=== PATIENT | female | born 1945 | race Caucasian/White ===

== ENCOUNTER → 2017-06-04 | Day surgery (SDC) | payer MEDICARE ==
[~2017-06-04] MED LIST: ADVA250A INH; CLINDAMYCIN PHOS 600 MG/4 ML VIAL ONE; DULO20 PO; DYAZ37.57 PO; GLUCTAB PO; KETOROLAC TROMETHAMINE 30 MG/ML (IVP) VIAL IV PUSH ONE; LACTATED RINGER'S 1000 ML INJ 1,000 ML ONE; LOSA25TA31 PO; MEPERIDINE HCL 25 MG/ML VIAL ONE; MIDAZOLAM HCL 2 MG/2 ML VIAL ONE; ONDANSETRON HCL 4 MG/2 ML VIAL IV PUSH ONE; PRIL20CA PO; PROPOFOL 200 MG/20 ML AMP IV ONE; SYNT112T PO; TRIAMCINOLONE ACETONIDE 40 MG/ML VIAL ONE; VENTAER INH; VITATAB11 CHEW
--- NOTE | 2017-06-04 13:28 | TN ---
cc: BASIA HADDAD M.D. DATE OF SURGERY June 04, 2017 PREOPERATIVE DIAGNOSIS Right knee internal derangement. POSTOPERATIVE DIAGNOSES 1. Right knee complex tear medial meniscus and lateral meniscus. 2. Right knee lateral compartment severe chondromalacia. PROCEDURE Right knee arthroscopic surgery - subtotal medial and lateral meniscectomy. SURGEON Parrish Haddad MD LICENSED EMBALMER SUPERVISOR SYLVIA Bailey None. ESTIMATED BLOOD LOSS None. COMPLICATIONS None. ANESTHESIA General. DRAINS None. TOURNIQUET TIME 13 minutes at 250 mmHg. CONDITION Stable. PLAN OF ACTIVITY As per orders. PROCEDURE The patient was brought into the operating room, had satisfactory anesthesia by the Department of Anesthesia. The right lower extremity was prepped and draped in the usual sterile manner. The extremity was exsanguinated by Mario wrap, tourniquet inflated to 250 mmHg. Routine anterior lateral and anterior medial port holes were made, introduction of the arthroscopic instrument performed. The knee was inflated with sterile Ringer's lactate solution. The patellofemoral compartment revealed the patient to have a moderate degree of synovitis. The patient was found to have a mild degree of chondromalacia of the patella. The medial compartment showed the patient to have mild to moderate degree of chondromalacia about the medial femoral condyle and medial tibial plateau. The patient was found to have a complex tear involving the posterior medial meniscus. Subtotal medial meniscectomy was used using different types of meniscal rongeurs with jt. The anterior cruciate ligament was found to be inact. The lateral compartment showed the patient to have a complex tear involving the lateral meniscus. A subtotal lateral meniscectomy was performed with multiple different types of meniscal rongeurs with the shaver. Chondroplasty and shaving of the articular surface also in the lateral compartment. The patient was found to have exposed bone involving the lateral tibial plateau and the lateral femoral condyle. Following the chondroplasty the knee was irrigated with copious amounts of sterile saline antibiotic solution. The wound itself was dry. The arthroscopic instruments were removed. The knee was injected with 1 cc of Kenalog 40. The incisions were closed with 3-0 nylon. Sterile dressings were applied. The tourniquet was deflated. The patient tolerated the procedure well and arrived in the recovery room in stable and satisfactory condition. MD FACUNDO Vance/SSB /1:10 PM /1:14 PM
== END | disposition home or self-care (01) ==
LOC: ESDC 10:49
PROVIDERS: ATTEND Orthopaedic Surgery Orthopaedic Surgery of the Spine
DX: S83.231A Complex tear of medial meniscus, current injury, right knee, initial encounter (principal); S83.271A Complex tear of lateral meniscus, current injury, right knee, initial encounter; M94.261 Chondromalacia, right knee
CPT/HCPCS: 01400; 29880; J1885; J2175; J2250; J2405; J3010; J3301; J7120

== ENCOUNTER → 2017-11-23 | Outpatient (CLI) | payer MEDICARE ==
[~2017-11-23] MED LIST changes: +ALBUAER3 INH; -CLINDAMYCIN PHOS 600 MG/4 ML VIAL ONE; +COZA25TA PO; +CPMMACHINE; +DYAZ37.5 PO; +FLUT1BLS INH; -KETOROLAC TROMETHAMINE 30 MG/ML (IVP) VIAL IV PUSH ONE; -LACTATED RINGER'S 1000 ML INJ 1,000 ML ONE; +LEVO112T2 PO; -MEPERIDINE HCL 25 MG/ML VIAL ONE; +METF500T PO; -MIDAZOLAM HCL 2 MG/2 ML VIAL ONE; -ONDANSETRON HCL 4 MG/2 ML VIAL IV PUSH ONE; +PRIL20TA2 PO; -PROPOFOL 200 MG/20 ML AMP IV ONE; -TRIAMCINOLONE ACETONIDE 40 MG/ML VIAL ONE; +TYLE325T PO; +WALKER WHEELS/F1 MIS
== END ==
LOC: CPRE 11:29
PROVIDERS: ATTEND Orthopaedic Surgery Orthopaedic Surgery of the Spine
DX: M17.10 Unilateral primary osteoarthritis, unspecified knee (principal)

== ENCOUNTER 2017-11-26 10:45 | Inpatient (IN) | payer MEDICARE ==
[~2017-11-26] VITALS: Ht 167.6 cm; Wt 103.0 kg
[~2017-11-26 10:45] MED LIST changes: -ADVA250A INH; -CPMMACHINE; -DYAZ37.57 PO; -GLUCTAB PO; -LOSA25TA31 PO; -PRIL20CA PO; -SYNT112T PO; -VENTAER INH; -VITATAB11 CHEW; -WALKER WHEELS/F1 MIS
[2017-11-26] MEDS ORDERED: GLYCOPYRROLATE 1 MG/5 ML SYRINGE IV PUSH ONE (12:00)
[2017-11-26] MEDS ORDERED: ePHEDrine/NS 25 MG/5 ML SYRINGE IV ONE (12:00)
[2017-11-26] MEDS ORDERED: ceFAZolin 2 GM PREMIX 50 ML IV SCH (12:00)
[2017-11-26] MEDS ORDERED: PHENYLEPHRINE HCL 10 MG/ML VIAL IV ONE (12:00)
[2017-11-26] MEDS ORDERED: LIDOCAINE HCL 1% PF 5 ML SYRINGE OTHER ONE (12:00)
[2017-11-26] MEDS ORDERED: PHENYLEPH/NS 1000 MCG/10 ML SYR IV ONE (12:00)
[2017-11-26] MEDS ORDERED: VANCOMYCIN 1 GM/200 ML INJ 200 ML IV ONE (12:31)
[2017-11-26] MEDS ORDERED: SODIUM CHLORID 0.9% 500 ML IV PRN (12:45)
[2017-11-26] MEDS ORDERED: METOPROLOL TARTRATE 25 MG TAB PO PRN (12:45)
[2017-11-26] MEDS ORDERED: LACTATED RINGER'S 1000 ML IV PRN (12:45)
[2017-11-26] MEDS ORDERED: POVIDONE IODINE 5% (ANTISEPSIS KIT) 4 APPLICATIONS EACH NARE PRN (12:45)
[2017-11-26] MEDS ORDERED: CHLORHEXIDINE GLUCONATE 2 % 1 PACK (2 CLOTHS) TOPICAL PRN (12:45)
[2017-11-26] MEDS ORDERED: MIDAZOLAM HCL 2 MG/2 ML VIAL ONE (12:51)
[2017-11-26] MEDS ORDERED: FAMOTIDINE 20 MG/2 ML VIAL ONE (12:51)
[2017-11-26] MEDS ORDERED: ROPIVACAINE PERI-ARTICULAR INJECTION. P-ARTICULR SCH ×5 (13:00)
[2017-11-26] MEDS ORDERED: MIDAZOLAM HCL 2 MG/2 ML VIAL IV PUSH ONE (13:00)
[2017-11-26] MEDS ORDERED: CHLORHEXIDINE GLUCONATE 4% SOLN 120 ML BTL TOPICAL SCH (13:00)
[2017-11-26] MEDS ORDERED: FAMOTIDINE 20 MG/2 ML VIAL IV PUSH ONE (13:00)
[2017-11-26] MEDS ORDERED: VANCOMYCIN 1 GM/200 ML PREMIX IV SCH (13:00)
[2017-11-26] MEDS ORDERED: BUPIVACAINE PF 0.75% DEX-WATER INJ 2 ML AMP ONE (13:30)
[2017-11-26] MEDS ORDERED: ceFAZolin 2 GM PREMIX 50 ML ONE (13:37)
[2017-11-26] MEDS ORDERED: GENTAMICIN SULFATE 80 MG/2 ML VIAL ONE (13:37)
[2017-11-26] MEDS ORDERED: PROPOFOL 500 MG/50 ML INJ 100 ML ONE (14:04)
[2017-11-26] MEDS ORDERED: KETAMINE HCL 500 MG/5 ML VIAL ONE (14:04)
[2017-11-26] MEDS ORDERED: Post-op Orders (for Pharmacy) XX ONE (17:15)
[2017-11-26] MEDS ORDERED: MORPHINE SULFATE 8 MG/ML INJ IV PUSH PRN (17:15)
[2017-11-26] MEDS ORDERED: ALUMINUM/MAGNESIUM/SIMETH 30 ML CUP PO PRN (17:15)
[2017-11-26] MEDS ORDERED: ZOLPIDEM TARTRATE 5 MG TAB PO PRN (17:15)
[2017-11-26] MEDS ORDERED: ALBUTEROL SULFATE 90 MCG/ACT HFA 8 GM INHALER INH PRN (17:15)
[2017-11-26] MEDS ORDERED: ONDANSETRON HCL 4 MG/2 ML VIAL IVP PRN (17:15)
[2017-11-26] MEDS ORDERED: CPMMACHINE (17:20)
[2017-11-26] MEDS ORDERED: WALKER WHEELS/F1 MIS (17:20)
--- NOTE | 2017-11-26 17:42 | RADRPT ---
EXAM DATE/TIME: 11/26/2017 17:25 [facility] COMPARISON: No previous studies available for comparison. INDICATIONS : Post hardware placement right knee MEDICAL HISTORY : Arthritis. SURGICAL HISTORY : None. ENCOUNTER: Initial ACUITY: 1 day PAIN SCORE: 0/10 LOCATION: Right Knee FINDINGS: AP and lateral views of the knee following arthroplasty reveals a prosthesis in anatomic alignment. F racture is not appreciated. Surgical drain is evident, CONCLUSION: Status post total knee arthroplasty. Nathan Locke MD FACR on November 26, 2017 at 17:40 Board Certified Radiologist. This report was verified electronically.
[2017-11-26] MEDS: LACTATED RINGER'S 1000 ML INJ 1,000 ML IV SCH (18:30)
[2017-11-26] MEDS ORDERED: *morphine SULFATE 4 MG/ML PERIprocedure ONLY ONE (18:43)
--- NOTE | 2017-11-26 19:14 | MP ---
cc: Daniel Lancaster MD, Alfonza Jr Staley, Tyler DATE OF OPERATION: PREOPERATIVE DIAGNOSIS: Right knee severe osteoarthritis, genu valgus deformity. POSTOPERATIVE DIAGNOSIS: Right knee severe osteoarthritis, genu valgus deformity. PROCEDURE PERFORMED: Right total knee arthroplasty, cemented [employer]. SURGEON: Daniel Lancaster MD COMMUNITY ORGANIZER: Nubia Aguila PA-C DRAINS: 2 ESTIMATED BLOOD LOSS: 25 mL ANESTHESIA: Spinal, adductor canal regional block, intraarticular block. TOURNIQUET TIME: 54 minutes at 250 mmHg. COMPLICATIONS: None. PLAN OF ACTIVITY: Per orders. DESCRIPTION OF PROCEDURE: The patient brought in the operating room, had satisfactory spinal anesthesia by the department of anesthesia. The patient also had a right lower extremity adductor canal regional block. This was followed with an intraarticular block by myself during the surgical procedure. The right lower extremity was prepped and draped in the usual sterile manner. The extremity was exsanguinated by elevation and tourniquet inflated to 250 mmHg. Routine anterior exposure of the knee was made. Paramedian capsulotomy was performed. The patient was found to have a prepatellar bursitis and patient was found to have a moderate degree of knee effusion with a moderate degree of synovitis. The patient was found to have severe tricompartment osteoarthritis with a genu valgus deformity. The remaining portion of the medial and lateral meniscus were removed. The anterior cruciate ligament was removed. The posterior cruciate ligament was preserved. The prepatellar fat pad was surgically excised. I used the [employer] V[employer] total knee arthroplasty system. IM guide was used for the distal femur to accept a 67.5 mm femoral component, 5 degree valgus cut. Extramedullary guide was used for the tibia and this was to accept a 75 mm tibial component. A 12 mm insert was used with satisfactory balancing of the knee in both flexion and extension. Undersurface of the patella was removed to accept a 31 mm 3-prong patellar prosthesis. All trial components were removed and preparation for cementing was made. Initially, local anesthesia was provided with 100 mL of local anesthesia by department of pharmacy. The knee was irrigated with copious amounts of sterile saline antibiotic solution. Two packages of high viscosity bone cement by [employer] were used. Initially, the tibial component was cemented, which was a 75 mm tibial component, followed by the femoral component, which was a 67.5 mm femoral component. All excess bone cement was removed. The undersurface of the patella was resurfaced with a 31 mm 3-pronged patellar prosthesis. Bone cement allowed to harden for 11 minutes. All excess bone cement was removed. A 12 lipped tibial component was used. It is a 12 x 25 mm tibial prosthesis. The clipping mechanism was assembled onto the polyethylene plastic. Tourniquet was deflated. All bleeders were coagulated. The wound was irrigated with 4000 mL of sterile saline antibiotic solution. The wound was closed over 2 Hemovac drains in routine fashion. The capsule and extensor mechanism were repaired using #2 Ti-Cron suture, subcutaneous tissue layers with 0 Vicryl and 2-0 Vicryl. Skin was approximated with skin phan. Instrument, sponge and sharp count correct at end of operation. The patient tolerated the procedure well and went to recovery room in stable and satisfactory condition. MD ANNABELLA Osman/LAINE , 05:03 PM , 07:13 PM
[2017-11-26] MEDS ORDERED: DO NOT ADM ANY ANTICOAGULANT DRUGS PRN (19:15)
[2017-11-26] MEDS: ASPIRIN EC 81 MG TABEC PO SCH (20:35)
[2017-11-26] MEDS: metFORMIN HCL 500 MG TAB PO SCH (20:40)
[2017-11-26] MEDS: ACETAMINOPHEN/HYDROcodone 325 MG/7.5 MG TAB PO PRN (20:53)
--- NOTE | 2017-11-26 21:47 | PD.CONS ---
HPI Service [facility] Hospitalists Consult Requested By Primary Care Physician Seth Marte Jr, MD Diagnoses: History of Present Illness Patient is 72 yo with htn, copd, hypothyroidism admitted for elective tka on the right. Seen in [place] and she is wide awake and doing great. pain controlled and her vitals are stable. She has no complaints. Of note recently took a [place] [facility] [facility] and [facility]. developed a respiratory illness and given shot steroid last week and completed a zpack with her lead c developer. Review of Systems Other right knee pain Past Family Social History Past Medical History htn hypothyroidism dm 2 copd ..severe depression OA estefania knees right knee meniscus surgery Reported Medications Tylenol (Acetaminophen) 325 Mg Tab 650 Mg PO Q4H PRN Proair Hfa 8.5 GM Inh (Albuterol Sulfate) 90 Mcg/Act Aer 2 Puff INH Q4-6H PRN 108 mcg/actuation Trelegy Ellipta 100-62.5-25 Inh (Jyrjnghpruq-Hcigklqfp-Vepinylv Inh) 100-62.5- 25 Mcg Inhaler 1 Blister INH DAILY Dyazide (Triamterene-Hydrochlorothiazide) 37.5-25 Mg Cap 1 Cap PO DAILY Prilosec (Omeprazole Magnesium) 20 Mg Tab 1 Tab PO DAILY Metformin (Metformin HCl) 500 Mg Tab 500 Mg PO BIDPC Cozaar (Losartan Potassium) 25 Mg Tab 25 Mg PO DAILY Levothyroxine (Levothyroxine Sodium) 112 Mcg Tab 112 Mcg PO DAILY Cymbalta DR (Duloxetine HCl) 20 Mg Capdr 40 Mg PO DAILY Allergies: Coded Allergies: penicillin G (Unverified Allergy, Severe, 11/26/17) Family History NC Social History 2 ppd tob x 40yrs. quit 1997 Physical Exam Vital Signs heart reg lung cta abd s/nt ext no edema right leg bandaged. drain. Vital Signs Date Time Temp Pulse Resp B/P (MAP) Pulse Ox O2 Delivery O2 Flow Rate FiO2 11/26/17 19:30 88 16 124/71 (88) 94 Room Air 11/26/17 18:30 97.5 86 16 123/58 (79) 97 Nasal Cannula 2 11/26/17 18:15 85 18 126/57 (80) 98 Nasal Cannula 2 11/26/17 18:00 81 22 124/58 (80) 96 Nasal Cannula 2 11/26/17 17:45 82 20 140/62 (88) 99 Nasal Cannula 2 11/26/17 17:30 82 16 132/62 (85) 98 Nasal Cannula 2 11/26/17 17:15 97.5 93 20 120/56 (77) 97 Nasal Cannula 2 11/26/17 13:07 100 Nasal Cannula 2 11/26/17 12:00 98.4 88 18 131/69 (89) 96 Assessment and Plan Problem List: (1) Osteoarthritis of right knee ICD Codes: M17.11 - Unilateral primary osteoarthritis, right knee Status: Acute Plan: 1. OA right knee s/p right tka 11/26 2. copd. stable. 3. htn. controlled 4. depression 5. dm 2 6. hypothyroidism cont home maintenance inhaler. rescue inhaler prn cont home metformin dosing cont home bp meds. diuretic was held prn pain control IS daily PT dvt prophylaxis plan for snf. (2) Hypothyroid ICD Codes: E03.9 - Hypothyroidism, unspecified Status: Chronic (3) DM type 2 (diabetes mellitus, type 2) ICD Codes: E11.9 - Type 2 diabetes mellitus without complications Status: Chronic (4) COPD (chronic obstructive pulmonary disease) ICD Codes: J44.9 - Chronic obstructive pulmonary disease, unspecified Status: Chronic (5) HTN (hypertension) ICD Codes: I10 - Essential (primary) hypertension Status: Chronic Problem Qualifiers (1) Osteoarthritis of right knee: Qualified Codes: M17.11 - Unilateral primary osteoarthritis, right knee Mykel Nascimento MD Nov 26, 2017 21:47
[2017-11-27] VITALS (7 sets, daily range): BP systolic 102–127; BP diastolic 52–77; PULSE 85–98; RESP 17–19; TEMP 96.4–98.9; O2SAT 91–97
[2017-11-27] MEDS: LACTATED RINGER'S 1000 ML INJ 1,000 ML IV SCH ×2 (04:16→20:00)
[2017-11-27 05:12] LABS: HEMATOCRIT 29.3 % (35.0-46.0); HEMOGLOBIN 10.1 GM/DL (11.6-15.3)
[2017-11-27] MEDS: LEVOTHYROXINE SODIUM 112 MCG TAB PO SCH (06:00)
--- NOTE | 2017-11-27 06:39 | PD.ORT.PN ---
Subjective Subjective Remarks POD#1 R TKR no C/O chest pain;no SOB Objective Vitals Vital Signs Date Time Temp Pulse Resp B/P (MAP) Pulse Ox O2 Delivery O2 Flow Rate FiO2 11/27/17 04:00 97.7 97 19 118/58 (78) 96 11/27/17 01:34 96.8 89 18 112/52 (72) 96 11/27/17 00:55 Nasal Cannula 3.00 11/26/17 23:00 98.0 94 20 122/58 (79) 92 Nasal Cannula 2 11/26/17 19:30 88 16 124/71 (88) 94 Room Air 11/26/17 18:30 97.5 86 16 123/58 (79) 97 Nasal Cannula 2 11/26/17 18:15 85 18 126/57 (80) 98 Nasal Cannula 2 11/26/17 18:00 81 22 124/58 (80) 96 Nasal Cannula 2 11/26/17 17:45 82 20 140/62 (88) 99 Nasal Cannula 2 11/26/17 17:30 82 16 132/62 (85) 98 Nasal Cannula 2 11/26/17 17:15 97.5 93 20 120/56 (77) 97 Nasal Cannula 2 11/26/17 13:07 100 Nasal Cannula 2 11/26/17 12:00 98.4 88 18 131/69 (89) 96 I/O 11/26/17 11/26/17 11/26/17 11/27/17 11/27/17 11/27/17 07:00 15:00 23:00 07:00 15:00 23:00 Intake Total 1190 ml 100 ml Output Total 1 ml 460 ml Balance -1 ml 730 ml 100 ml Intake Oral 340 ml IV Total 850 ml 100 ml Output Urine Total 1 ml 200 ml Drainage Total 235 ml Estimated Blood Loss 25 ml Result Diagram: 11/27/17 0400 Imaging Last 24 hours Impressions Knee X-Ray 11/26/17 8425 Signed Impressions: Service Date/Time: Sunday, November 26, 2017 17:25 - CONCLUSION: Status post total knee arthroplasty. Nathan Locke MD Objective Remarks N/V intact No calf tenderness;neg clayton's Assessment & Plan Assessment and Plan Ortho stable PT/Rehab Aspirin EC 81mg BID x 4 weeks,TEDS for DVT prophylaxsis D/C to SNF tomorrow Daniel Lancaster MD Nov 27, 2017 06:39
[2017-11-27] MEDS: PANTOPRAZOLE SOD 20 MG DELAYED RELEASE TAB PO SCH (08:13)
[2017-11-27] MEDS: ACETAMINOPHEN/HYDROcodone 325 MG/7.5 MG TAB PO PRN ×4 (08:13→21:03)
[2017-11-27] MEDS: ASPIRIN EC 81 MG TABEC PO SCH ×2 (08:14→21:02)
[2017-11-27] MEDS: metFORMIN HCL 500 MG TAB PO SCH ×2 (08:14→18:34)
[2017-11-27] MEDS: LOSARTAN 25 MG TAB PO SCH (08:27)
[2017-11-27] MEDS: DULoxetine HCl DR 20 MG CAP PO SCH (08:28)
[2017-11-27] MEDS ORDERED: VILANTEROL INH SCH (09:00)
[2017-11-27] MEDS ORDERED: FLUTICASONE FUROATE INH SCH (09:00)
[2017-11-27] MEDS ORDERED: UMECLIDINIUM INH SCH (09:00)
--- NOTE | 2017-11-27 16:13 | EKG ---
Date Performed: 11/26/2017 Time Performed: 11:39:05 PTAGE: 72 years EKG: Sinus rhythm ARM LEADS REVERSED ATYPICAL ECG PREVIOUS TRACING : 04/27/2011 15.48 Compared to previous tracing, arm lead reversal now present . DOCTOR: Sree Carpenter Interpretating Date/Time 11/27/2017 16:11:20
[2017-11-28] MEDS: LEVOTHYROXINE SODIUM 112 MCG TAB PO SCH (06:08)
--- NOTE | 2017-11-28 07:45 | PD.ORT.PN ---
Subjective Subjective Remarks pt doing better, ready for discharge today Objective Vitals Vital Signs Date Time Temp Pulse Resp B/P (MAP) Pulse Ox O2 Delivery O2 Flow Rate FiO2 11/27/17 23:40 98.9 85 19 127/77 (94) 95 11/27/17 19:30 97.5 95 17 123/60 (81) 95 11/27/17 17:17 18 11/27/17 16:00 97.8 96 18 103/57 (72) 97 11/27/17 12:00 96.4 98 18 102/54 (70) 97 11/27/17 09:13 18 11/27/17 08:00 96.9 89 18 113/59 (77) 91 I/O 11/27/17 11/27/17 11/27/17 11/28/17 11/28/17 11/28/17 07:00 15:00 23:00 07:00 15:00 23:00 Intake Total 757 ml 600 ml 480 ml 480 ml Output Total 50 ml Balance 707 ml 600 ml 480 ml 480 ml Intake Oral 600 ml 480 ml 480 ml IV Total 757 ml Output Urine Total 0 ml Drainage Total 50 ml # Voids 3 2 2 # Bowel Movements 0 0 0 0 Result Diagram: 11/27/17 0400 Imaging Last 24 hours Impressions Knee X-Ray 11/26/17 1715 Signed Impressions: Service Date/Time: Sunday, November 26, 2017 17:25 - CONCLUSION: Status post total knee arthroplasty. Nathan Locke MD Objective Remarks sitting up in bed comfortably right knee dressing dry and intact N/V intact No calf tenderness;neg clayton's Assessment & Plan Assessment and Plan POD # 2 s/p R TKA Ortho stable PT/Rehab Aspirin EC 81mg BID x 4 weeks,TEDS for DVT prophylaxsis D/C to SNF today Clune, [id number] in chart Nubia Yanes Nov 28, 2017 07:45
[2017-11-28 08:00] VITALS: BP 131/60; PULSE 95; RESP 18; TEMP 95.9; O2SAT 93
[2017-11-28] MEDS: LACTATED RINGER'S 1000 ML INJ 1,000 ML IV SCH ×2 (08:30→20:47)
[2017-11-28] MEDS: ASPIRIN EC 81 MG TABEC PO SCH ×2 (08:41→20:44)
[2017-11-28] MEDS: metFORMIN HCL 500 MG TAB PO SCH ×2 (08:41→18:12)
[2017-11-28] MEDS: LOSARTAN 25 MG TAB PO SCH (08:41)
[2017-11-28] MEDS: PANTOPRAZOLE SOD 20 MG DELAYED RELEASE TAB PO SCH (08:41)
[2017-11-28] MEDS: DULoxetine HCl DR 20 MG CAP PO SCH (08:42)
[2017-11-28] MEDS: ACETAMINOPHEN/HYDROcodone 325 MG/7.5 MG TAB PO PRN ×3 (08:43→18:13)
[2017-11-28 12:00] VITALS: BP 125/60; PULSE 95; RESP 18; TEMP 96.4; O2SAT 95
[2017-11-28 16:00] VITALS: BP 135/63; PULSE 97; RESP 18; TEMP 96.2; O2SAT 93
[2017-11-28 19:00] VITALS: BP 126/58; PULSE 98; RESP 17; TEMP 97.7; O2SAT 93
[2017-11-29 00:59] VITALS: BP 134/68; PULSE 89; RESP 18; TEMP 97.8; O2SAT 98
[2017-11-29] MEDS: LEVOTHYROXINE SODIUM 112 MCG TAB PO SCH (04:51)
[2017-11-29] MEDS: ACETAMINOPHEN/HYDROcodone 325 MG/7.5 MG TAB PO PRN ×3 (04:53→15:56)
[2017-11-29 08:00] VITALS: BP 123/60; PULSE 105; RESP 17; TEMP 96.7; O2SAT 92
[2017-11-29] MEDS ORDERED: MAGNESIUM HYDROXIDE SUSP 30 ML CUP PO SCH (09:00)
[2017-11-29] MEDS: ASPIRIN EC 81 MG TABEC PO SCH (09:09)
[2017-11-29] MEDS: metFORMIN HCL 500 MG TAB PO SCH (09:10)
[2017-11-29] MEDS: LOSARTAN 25 MG TAB PO SCH (09:11)
[2017-11-29] MEDS: PANTOPRAZOLE SOD 20 MG DELAYED RELEASE TAB PO SCH (09:11)
[2017-11-29] MEDS: DULoxetine HCl DR 20 MG CAP PO SCH (09:11)
[2017-11-29] MEDS: LACTATED RINGER'S 1000 ML INJ 1,000 ML IV SCH (09:30)
[2017-11-29 12:00] VITALS: BP 111/61; PULSE 93; RESP 17; TEMP 96.2; O2SAT 93
--- NOTE | 2017-11-29 13:16 | PD.ORT.PN ---
Subjective Subjective Remarks pt doing better each day going to [facility] today Objective Vitals Vital Signs Date Time Temp Pulse Resp B/P (MAP) Pulse Ox O2 Delivery O2 Flow Rate FiO2 11/29/17 12:00 96.2 93 17 111/61 (78) 93 11/29/17 08:00 96.7 105 17 123/60 (81) 92 11/29/17 00:59 97.8 89 18 134/68 (90) 98 11/28/17 19:00 97.7 98 17 126/58 (80) 93 11/28/17 16:00 96.2 97 18 135/63 (87) 93 11/28/17 15:03 18 I/O 11/28/17 11/28/17 11/28/17 11/29/17 11/29/17 11/29/17 07:00 15:00 23:00 07:00 15:00 23:00 Intake Total 480 ml 700 ml 480 ml 480 ml Balance 480 ml 700 ml 480 ml 480 ml Intake Oral 480 ml 600 ml 480 ml 480 ml IV Total 100 ml # Voids 2 3 4 2 # Bowel Movements 0 0 0 0 Result Diagram: 11/27/17 0400 Imaging Last 24 hours Impressions Knee X-Ray 11/26/17 1715 Signed Impressions: Service Date/Time: Sunday, November 26, 2017 17:25 - CONCLUSION: Status post total knee arthroplasty. Nathan Locke MD Objective Remarks sitting up in bed comfortably right knee dressing dry and intact N/V intact No calf tenderness;neg clayton's Assessment & Plan Assessment and Plan POD # 3 s/p R TKA Ortho stable PT/Rehab Aspirin EC 81mg BID x 4 weeks,TEDS for DVT prophylaxsis was unable to go to rehab yesterday, being d/c to [facility] today Diane, [id number] in chart Nubia Yanes Nov 29, 2017 13:16
== END 2017-11-29 16:10 | DRG 470 ==
LOC: HSDI 10:45 → HPAC 23:29 → N06B 11-27 01:13
PROVIDERS: ADMIT Orthopaedic Surgery Orthopaedic Surgery of the Spine; ATTEND Orthopaedic Surgery Orthopaedic Surgery of the Spine
PROC: 3E0T3BZ Introduction of Anesthetic Agent into Peripheral Nerves and Plexi, Percutaneous Approach (ICD-10-PCS; 2017-11-26)
PROC: 0SRC0J9 Replacement of Right Knee Joint with Synthetic Substitute, Cemented, Open Approach (ICD-10-PCS; principal; 2017-11-26 15:01)
DX: M17.11 Unilateral primary osteoarthritis, right knee (principal); J44.9 Chronic obstructive pulmonary disease, unspecified; E11.9 Type 2 diabetes mellitus without complications; I10 Essential (primary) hypertension; E03.9 Hypothyroidism, unspecified; F32.9 Major depressive disorder, single episode, unspecified; M21.061 Valgus deformity, not elsewhere classified, right knee; Z79.84 Long term (current) use of oral hypoglycemic drugs; Z87.891 Personal history of nicotine dependence
CPT/HCPCS: 73560; 82948; 85014; 85018; 86850; 86900; 86901; 86920; 93005; 94150; C1776; J0690; J0735; J1580; J1885; J2250; J2270; J2370; J2795; J3010; J3370; J7120; L1830